=== PATIENT | female | born 1950 | race Caucasian/White ===

== ENCOUNTER → 2017-03-18 | Outpatient (CLI) | payer BC | LOC: BMCIMAGING 08:55 | PROVIDERS: ATTEND Internal Medicine | DX: Z12.31 Encounter for screening mammogram for malignant neoplasm of breast (principal) | CPT/HCPCS: G0202 ==

== ENCOUNTER → 2017-05-30 | Outpatient (CLI) | payer BC | LOC: BMCIMAGING 10:05 | PROVIDERS: ATTEND Family Medicine | DX: M25.561 Pain in right knee (principal) ==

== ENCOUNTER → 2018-01-23 | Outpatient (CLI) | payer OTHER, MEDICARE | LOC: BMCIMAGING 14:00 | PROVIDERS: ATTEND Internal Medicine | DX: Z13.820 Encounter for screening for osteoporosis (principal); M81.0 Age-related osteoporosis without current pathological fracture ==

== ENCOUNTER → 2018-04-11 | Outpatient (CLI) | payer OTHER, MEDICARE | LOC: BMCIMAGING 12:28 | PROVIDERS: ATTEND Internal Medicine | DX: Z12.31 Encounter for screening mammogram for malignant neoplasm of breast (principal) ==